=== PATIENT | female | born 1985 | race Two or more races ===

== ENCOUNTER 2023-01-20 15:23 | Outpatient (CLI) | payer OTHER ==
[~2023-01-20 15:23] MED LIST: CEFTIN250 MG PO; FOLIC ACID20 MG; URIN D.S. TABLE1 TAB PO
== END 2023-01-20 15:34 | disposition home or self-care (01) ==
LOC: PRENATAL 15:23
PROVIDERS: ATTEND Obstetrics & Gynecology Maternal & Fetal Medicine
DX: O36.80X0 Pregnancy with inconclusive fetal viability, not applicable or unspecified (principal); Z36.82 Encounter for antenatal screening for nuchal translucency; O09.529 Supervision of elderly multigravida, unspecified trimester; O34.219 Maternal care for unspecified type scar from previous cesarean delivery; Z36.9 Encounter for antenatal screening, unspecified; Z3A.12 12 weeks gestation of pregnancy

== ENCOUNTER 2023-03-11 13:06 | Outpatient (CLI) | payer OTHER | END 2023-03-11 13:13 | disposition home or self-care (01) | LOC: PRENATAL 13:06 | PROVIDERS: ATTEND Obstetrics & Gynecology Maternal & Fetal Medicine | DX: O35.9XX0 Maternal care for (suspected) fetal abnormality and damage, unspecified, not applicable or unspecified (principal); O35.3XX0 Maternal care for (suspected) damage to fetus from viral disease in mother, not applicable or unspecified; O09.529 Supervision of elderly multigravida, unspecified trimester; O34.219 Maternal care for unspecified type scar from previous cesarean delivery; Z3A.19 19 weeks gestation of pregnancy ==